=== PATIENT | male | born 1970 | race Asian ===

== ENCOUNTER 2017-02-26 09:00 | Emergency (ER) | payer OTHER ==
[~2017-02-26] VITALS: Ht 165.1 cm; Wt 120.0 kg
[~2017-02-26 09:00] MED LIST: ASPI-664 PO; ERYT1OIN6 RIGHT EYE; GUAI120S26 PO; IBUP-1542 PO; LORA1TAB PO; LOSA50TA2 PO; NAPR-688 PO; SIMV40TA2 PO
[2017-02-26 09:05] VITALS: Ht 165.1 cm; Wt 120.0 kg
[2017-02-26] MEDS ORDERED: ONDANSETRON 4 MG INJ IV STA (09:56)
[2017-02-26] MEDS ORDERED: KETOROLAC 30 MG INJ IV STA (09:56)
[2017-02-26] MEDS ORDERED: SOD CHLORIDE 0.9% 1,000 ML IV ONE (10:00)
--- NOTE | 2017-02-26 10:01 | ERD ---
ER Documentation Chief Complaint Date/Time DATE: 02/26/17 TIME: 09:56 Chief Complaint Complains of right flank pain HX of Kidney stone HPI 46-year-old male who presents to the emergency department for right-sided flank pain for about 7 days but got worse last night. Also complains of dysuria. Denies headache, dizziness, blurry vision, neck pain, shoulder pain, chest pain , back pain, abdominal pain, nausea and vomiting, constipation, diarrhea, loss of bowel and bladder control, recent travel, recent long travel, penile discharge, penile bleeding, trauma, numbness or tingling sensation, recent exposure to any illness, antibiotic use in the last 3 months, fever, chills. No known drug allergies. Past medical history of right-sided kidney stone. Surgical history of cholecystectomy. Medication: Losartan, simvastatin, aspirin, oxybutynin, omeprazole. Social: Not working at this time. Occasional drinks alcoholic beverages. Denies smoking cigarettes, use of illegal drugs. ROS All systems reviewed and are negative except as per history of present illness. Medications Home Meds Active Scripts Naproxen* (Naproxen*) 500 Mg Tablet, 500 MG PO BID, #20 TAB Prov:DMITRYDERICK DO 05/17/16 Fhgxfamuukx-R-Yhbutuoczo Hb* (Guaifenesin* DM Syrup) 120 Ml Syrup, 10 ML PO Q4H Y for COUGH, #120 ML Prov:ROSANNE IYER PA-C 04/10/16 Lorazepam* (Lorazepam*) 1 Mg Tablet, 1 MG PO BID Y for ANXIETY, #14 TAB Prov:RAF NOGUEIRA 08/06/15 Erythromycin (Erythromycin Opth) 3.5 Gm Oint..gm., 1 APPLIC RIGHT EYE QID for 7 Days, EA Prov:RAF NOGUEIRA 08/06/15 Ibuprofen* (Motrin*) 600 Mg Tab, 600 MG PO Q6H Y for PAIN AND OR ELEVATED TEMP, #30 Prov:FREDA LEVINE MD 02/13/15 Reported Medications Simvastatin* (Zocor*) 40 Mg Tablet, 40 MG PO QHS, #30 TAB 05/17/16 Losartan Potassium* (Cozaar*) 50 Mg Tablet, 50 MG PO DAILY, #30 TAB 05/17/16 Aspirin (Low Dose Aspirin) 81 Mg Tablet.dr, 81 MG PO DAILY 11/24/14 Allergies Allergies: Coded Allergies: No Known Allergy (Unverified , 02/13/15) PMhx/Soc History of Surgery: No Anesthesia Reaction: No Hx Neurological Disorder: No Hx Respiratory Disorders: No Hx Cardiac Disorders: Yes (HTN) Hx Psychiatric Problems: No Hx Miscellaneous Medical Probl: No Hx Alcohol Use: Yes Hx Substance Use: No Hx Tobacco Use: Yes Smoking Status: Never smoker Physical Exam Vitals Vital Signs Date Time Temp Pulse Resp B/P Pulse Ox O2 Delivery O2 Flow Rate FiO2 02/26/17 09:05 97.7 65 20 133/73 97 Physical Exam Const: [] Head: Atraumatic Eyes: Normal Conjunctiva ENT: Normal External Ears, Nose and Mouth. Neck: Full range of motion..~ No meningismus. Resp: Clear to auscultation bilaterally Cardio: Regular rate and rhythm, no murmurs Abd: Soft, non tender, non distended. Normal bowel sounds : Right-sided CVA tenderness. Skin: No petechiae or rashes Back: No midline or flank tenderness Ext: No cyanosis, or edema Neur: Awake and alert Psych: Normal Mood and Affect Result Diagram: 02/26/17 1010 02/26/17 1010 Results 24 hrs Laboratory Tests Test 02/26/17 10:10 02/26/17 10:18 White Blood Count 8.310^3/ul Red Blood Count 5.1710^6/ul Hemoglobin 14.5g/dl Hematocrit 44.7% Mean Corpuscular Volume 86.5fl Mean Corpuscular Hemoglobin 28.0pg Mean Corpuscular Hemoglobin Concent 32.4g/dl Red Cell Distribution Width 13.2% Platelet Count 27945^3/UL Mean Platelet Volume 10.0fl Neutrophils % 63.2% Lymphocytes % 25.4% Monocytes % 9.0% Eosinophils % 1.7% Basophils % 0.5% Nucleated Red Blood Cells % 0.0/100WBC Neutrophils # (Manual) 5.310^3/ul Lymphocytes # 2.110^3/ul Monocytes # 0.810^3/ul Eosinophils # 0.110^3/ul Basophils # 0.010^3/ul Nucleated Red Blood Cells # 0.010^3/ul Sodium Level 145mmol/L Potassium Level 4.1mmol/L Chloride Level 105mmol/L Carbon Dioxide Level 24mmol/L Anion Gap 20 Blood Urea Nitrogen 19mg/dl Creatinine 0.98mg/dl Glucose Level 97mg/dl Calcium Level 9.1mg/dl Total Bilirubin 0.1mg/dl Direct Bilirubin 0.00mg/dl Indirect Bilirubin 0.1mg/dl Aspartate Amino Transf (AST/SGOT) 29IU/L Alanine Aminotransferase (ALT/SGPT) 51IU/L Alkaline Phosphatase 59IU/L Total Protein 7.8g/dl Albumin 4.4g/dl Globulin 3.40g/dl Albumin/Globulin Ratio 1.29 Amylase Level 58U/L Lipase 56U/L Urine Color YELLOW Urine Clarity SLIGHTLY CLOUDY Urine pH 5.0 Urine Specific [place] 1.023 Urine Ketones NEGATIVEmg/dL Urine Nitrite NEGATIVEmg/dL Urine Bilirubin NEGATIVEmg/dL Urine Urobilinogen NEGATIVEmg/dL Urine Leukocyte Esterase NEGATIVELeu/ul Urine Microscopic RBC 0/HPF Urine Microscopic WBC 1/HPF Urine Hemoglobin 1+mg/dL Urine Glucose NEGATIVEmg/dL Urine Total Protein NEGATIVEmg/dl Current Medications Medications (Trade) Dose Ordered Sig/Sima Route PRN Reason Start Time Stop Time Status Last Admin Dose Admin Sodium Chloride (NS) 1,000 ml @ 1,000 mls/hr Q1H ONCE IV 02/26/17 10:00 02/26/17 10:59 DC 02/26/17 10:08 Ketorolac Tromethamine (Toradol) 30 mg ONCE STAT IV 02/26/17 09:56 02/26/17 09:59 DC 02/26/17 10:08 Ondansetron HCl (Zofran Inj) 4 mg ONCE STAT IV 02/26/17 09:56 02/26/17 09:59 DC 02/26/17 10:07 Procedures/MDM Examination: Please see physical examination. Disease process, medical treatment was explained to the patient and family member. They verbalized understanding and agreed with the diagnostic tests, medical treatment, and follow-up care. Radiology: CT of the abdomen and pelvis without IV contrast Impression: Blood works: Reviewed. Urinalysis: Reviewed. Treatment: IV insertion. Normal saline IV bolus. Toradol IV. Zofran IV. Re-evaluation: Denies headache, dizziness, blurry vision, neck pain, shoulder pain, chest pain, back pain, abdominal pain, nausea, vomiting. No episode of emesis in the emergency department. Alert and oriented 4. Speaks full and clear sentences. Respirations even and unlabored. Lung sounds clear to auscultation. Active bowel sounds. There is no right upper/right lower/ epigastric/left upper/left lower abdominal tenderness and light and deep palpation. Negative on Rovsings sign. Negative [place] sign. Able to jump 5 times without developing right-sided abdominal pain. No peritoneal signs. Ambulatory with steady gait. No neurovascular deficits. No neurological deficits. Consultation: Case was discussed with supervising physician, Dr. Prem Fuentes who agreed with my medical decision making to discharge the patient. Differential diagnosis: Appendicitis versus pancreatitis versus liver disease versus nephrolithiasis versus pyelonephritis versus urinary tract infection versus musculoskeletal spasms Medical decision m[age]-year-old male who presents to the emergency department for right-sided flank pain for about 7 days but got worse last night. Also complains of dysuria. Denies headache, dizziness, blurry vision, neck pain, shoulder pain, chest pain, back pain, abdominal pain, nausea and vomiting, constipation, diarrhea, loss of bowel and bladder control, recent travel, recent long travel, penile discharge, penile bleeding, trauma, numbness or tingling sensation, recent exposure to any illness, antibiotic use in the last 3 months, fever, chills. Physical examination revealed that patient has right-sided CVA tenderness. Able to jump 5 times without developing right- sided abdominal pain. Medications prescribed are the following: tramadol, flexeril, zofran Patient and family member are made aware of the side effects and adverse reactions of the medications prescribed. Instructed on when to seek emergent and medical attention in case allergic/anaphylactic reactions or severe side effects and or adverse reactions to medications. Patient and family member verbalized understanding. Patient instructed Instructed to follow-up with his PCP in 24-48 hours. Instructed to Call 911 for chest pain, shortness of breath. Advised to come back here in ED as soon as possible for severity of symptoms which includes but not limited to: any new symptoms; shortness of breath/difficulty of breathing; cardiovascular changes; severe gastrointestinal symptoms; signs and symptoms of bleeding and or infection; signs of compartment syndrome/neurovascular changes; neurological changes/deficits. Patient and family member verbalized understanding. Upon discharge, patient is alert and oriented x 4, speaks full and clear sentences, denies pain, has no neurological deficits, has no neurovascular deficits, difficulty of breathing. Breathing even and unlabored. Lung sounds are clear to auscultation. Not in distress. Appears comfortable. Ambulatory with steady gait. Appears satisfied with care provided here in ED. Departure Diagnosis: Primary Impression: Flank pain Additional Impressions: Muscle spasm Fatty liver Condition: Good Additional Instructions: Instructed to follow-up with his PCP in 24-48 hours. Instructed to Call 911 for chest pain, shortness of breath. Advised to come back here in ED as soon as possible for severity of symptoms which includes but not limited to: any new symptoms; shortness of breath/difficulty of breathing; cardiovascular changes; severe gastrointestinal symptoms; signs and symptoms of bleeding and or infection; signs of compartment syndrome/neurovascular changes; neurological changes/deficits. Patient and family member verbalized understanding. SOLEDAD MCFADDEN Feb 26, 2017 10:01
--- NOTE | 2017-02-26 10:41 | RADRPT ---
PROCEDURE: CT Abdomen and Pelvis without contrast. CLINICAL INDICATION: Flank, groin and back pain, dysuria. TECHNIQUE: CT scan of the abdomen and pelvis without contrast was performed on a multidetector hig h-resolution CT scanner. The patient was scanned without intravenous contrast. Coronal and sagittal reformatted images were obtained from the axial source images. Images were reviewed on a high-resol [facility] [employer] PACS workstation. The total exam CTDI equals 22.91 mGy and the total exam DLP equals 1586.41 m Gy-cm. One or the following dose reduction techniques were used: -Automated exposure control. -Adjustment of the mA and/or KV according to patient's size. -Use of iterative reconstruction technique. COMPARISON: None. FINDINGS: Cardiac/lung Bases: There is mild cardiomegaly. Lung bases appear clear. GI:. Unremarkable. Liver: Liver is mildly enlarged at 22 cm in length with a decrease in the overall attenuation sugges ting mild steatosis. Gallbladder: Clips in the gallbladder fossa indicative of prior cholecystectomy without biliary tree dilatation. Pancreas: There is fatty replacement of the pancreas. Spleen: Unremarkablel Adrenals: Unremarkable. Kidneys: There is no evidence of urolithiasis or obstructive uropathy. Bladder: Unremarkable. Pelvic Organs: Unremarkable. Skeleton: Normal for age. Other: N/A IMPRESSION: 1. Mild hepatomegaly with a slight decrease in the overall attenuation consistent with disuse steato sis. 2. Previous cholecystectomy without biliary tree dilatation. 3. No evidence of urolithiasis or obstructive uropathy. 4. Mild scattered colonic diverticulosis without evidence of acute diverticulitis. 5. Mild fatty replacement of the pancreas. 6. Mild cardiomegaly. 7. No other significant intra-abdominal or pelvic process identified. RPTAT: [facility] Physician Kiana Date Time Electronically viewed and signed by Physician Kiana on 02/26/2017 10:40 /
[2017-02-26 11:51] LABS: BASOPHILS % 0.5 % (0.0-2.0); EOSINOPHILS # 0.1 10^3/ul (0.0-0.5); EOSINOPHILS % 1.7 % (0.0-7.0); HEMATOCRIT 44.7 % (42.0-52.0); HEMOGLOBIN 14.5 g/dl (14.0-18.0); LYMPHOCYTES # 2.1 10^3/ul (0.8-2.9); LYMPHOCYTES % 25.4 % (15.0-51.0); MEAN CORPUSCULAR HGB CONC 32.4 g/dl (32.0-37.0); MEAN CORPUSCULAR VOLUME 86.5 fl (82.0-101.0); MONOCYTE # 0.8 10^3/ul (0.3-0.9); NEUTROPHILS % 63.2 % (39.0-77.0); PLATELET COUNT 268 10^3/UL (140-415); RED BLOOD COUNT 5.17 10^6/ul (4.70-6.10); RED CELL DISTRIBUTION WIDTH 13.2 % (11.5-14.5); WHITE BLOOD COUNT 8.3 10^3/ul (4.8-10.8)
[2017-02-26 11:58] LABS: ADD UMIC YES; UR ASCORBIC ACID NEGATIVE (NEGATIVE); UR BILIRUBIN (Dip) NEGATIVE (NEGATIVE); UR BLOOD (Dip) 1+ mg/dL (NEGATIVE); UR CLARITY SLIGHTLY CLOUDY (CLEAR); UR COLOR YELLOW (YELLOW); UR GLUCOSE (Dip) NEGATIVE (NEGATIVE); UR KETONES (Dip) NEGATIVE (NEGATIVE); UR LEUKOCYTE ESTERASE (Dip) NEGATIVE Leu/ul (NEGATIVE); UR NITRITE (Dip) NEGATIVE (NEGATIVE); UR RBC 0 /HPF (0-5); UR SPECIFIC GRAVITY (Dip) 1.023 (1.003-1.030); UR TOTAL PROTEIN (Dip) NEGATIVE (NEGATIVE); UR UROBILINOGEN (Dip) NEGATIVE (NEGATIVE)
[2017-02-26 12:53] LABS: ALBUMIN 4.4 g/dl (3.3-4.9); ALBUMIN/GLOBULIN RATIO 1.29; BILIRUBIN,INDIRECT 0.1 mg/dl (0-1.1); BILIRUBIN,TOTAL 0.1 mg/dl (0.2-1.3); CALCIUM 9.1 mg/dl (8.4-10.2); CREATININE 0.98 mg/dl (0.61-1.24); POTASSIUM 4.1 mmol/L (3.5-5.1); TOTAL PROTEIN 7.8 g/dl (6.1-8.1)
== END 2017-02-26 13:40 | disposition home or self-care (01) ==
LOC: FTE 09:00
DX: R10.9 Unspecified abdominal pain (principal); M62.838 Other muscle spasm; K76.0 Fatty (change of) liver, not elsewhere classified; I10 Essential (primary) hypertension; Z79.82 Long term (current) use of aspirin
CPT/HCPCS: 74176; 80053; 81001; 82150; 83690; 85025; 96374; 96375; J1885; J2405; J7030; Z7502

== ENCOUNTER 2017-04-10 10:34 | Emergency (ER) | payer OTHER ==
[~2017-04-10] VITALS: Ht 157.5 cm; Wt 119.0 kg
[2017-04-10 10:37] VITALS: Ht 157.5 cm; Wt 119.0 kg
--- NOTE | 2017-04-10 11:47 | RADRPT ---
PROCEDURE: Chest x-ray CLINICAL INDICATION: Shortness of breath TECHNIQUE: Chest single view COMPARISON: 05/17/2016 FINDINGS: There is stable mild cardiomegaly . The pulmonary vessels are normal in caliber. The lungs are c lear. The costophrenic angles are sharp. The visualized bony thorax is unremarkable. IMPRESSION: No acute cardiopulmonary disease. Stable mild cardiomegaly. RPTAT: HH .Sebastian Dickerson MD, MD Date Time Electronically viewed and signed by .Sebastian Dickerson MD, on 04/10/2017 11:47 .W/
[2017-04-10] MEDS ORDERED: SOD CHLORIDE 0.9% 1,000 ML IV STA (12:30)
[2017-04-10 12:54] LABS: BASOPHIL # 0.1 10^3/ul (0.0-0.1); BASOPHILS % 0.7 % (0.0-2.0); EOSINOPHILS # 0.1 10^3/ul (0.0-0.5); EOSINOPHILS % 0.9 % (0.0-7.0); HEMATOCRIT 44.9 % (42.0-52.0); HEMOGLOBIN 14.7 g/dl (14.0-18.0); LYMPHOCYTES % 22.3 % (15.0-51.0); MEAN CORPUSCULAR HEMOGLOBIN 28.2 pg (29.0-33.0); MEAN CORPUSCULAR HGB CONC 32.7 g/dl (32.0-37.0); MEAN CORPUSCULAR VOLUME 86.2 fl (82.0-101.0); MONOCYTE # 0.8 10^3/ul (0.3-0.9); MONOCYTES % 8.7 % (0.0-11.0); NEUTROPHIL # 6.1 10^3/ul (1.6-7.5); NEUTROPHILS % 67.2 % (39.0-77.0); PLATELET COUNT 292 10^3/UL (140-415); RED BLOOD COUNT 5.21 10^6/ul (4.70-6.10); RED CELL DISTRIBUTION WIDTH 12.7 % (11.5-14.5); WHITE BLOOD COUNT 9.1 10^3/ul (4.8-10.8)
--- NOTE | 2017-04-10 13:01 | ERD ---
ER Documentation Chief Complaint Date/Time DATE: 04/10/17 TIME: 12:53 Chief Complaint Complains of SOB since this No Asthma HPI 46-year-old male with history of hypertension presenting to the emergency department planing of shortness of breath since earlier today. Patient states that he was in a hot warehouse and moving loads when he started feeling sweaty, nauseous and had an episode of vomiting for couple minutes. Patient states that after this episode, he started having shortness of breath. He denies any chest pain. Patient said that shortness of breath has gotten a lot better since it happened. ROS All systems reviewed and are negative except as per history of present illness. Medications Home Meds Active Scripts Naproxen* (Naproxen*) 500 Mg Tablet, 500 MG PO BID, #20 TAB Prov:DERICK ANDRES DO 05/17/16 Bdbfqbjbolb-M-Zzzuezukjj Hb* (Guaifenesin* DM Syrup) 120 Ml Syrup, 10 ML PO Q4H Y for COUGH, #120 ML Prov:ROSANNE IYER PA-C 04/10/16 Lorazepam* (Lorazepam*) 1 Mg Tablet, 1 MG PO BID Y for ANXIETY, #14 TAB Prov:RAF NOGUEIRA S. 08/06/15 Erythromycin (Erythromycin Opth) 3.5 Gm Oint..gm., 1 APPLIC RIGHT EYE QID for 7 Days, EA Prov:RAF NOGUEIRA S. 08/06/15 Ibuprofen* (Motrin*) 600 Mg Tab, 600 MG PO Q6H Y for PAIN AND OR ELEVATED TEMP, #30 Prov:FREDA LEVINE MD 02/13/15 Reported Medications Simvastatin* (Zocor*) 40 Mg Tablet, 40 MG PO QHS, #30 TAB 05/17/16 Losartan Potassium* (Cozaar*) 50 Mg Tablet, 50 MG PO DAILY, #30 TAB 05/17/16 Aspirin (Low Dose Aspirin) 81 Mg Tablet.dr, 81 MG PO DAILY 11/24/14 Allergies Allergies: Coded Allergies: No Known Allergy (Unverified , 02/13/15) PMhx/Soc History of Surgery: No Anesthesia Reaction: No Hx Neurological Disorder: No Hx Respiratory Disorders: No Hx Cardiac Disorders: Yes (HTN) Hx Psychiatric Problems: No Hx Miscellaneous Medical Probl: No Hx Alcohol Use: Yes Hx Substance Use: No Hx Tobacco Use: Yes Smoking Status: Smoker,current status unk Physical Exam Vitals Vital Signs Date Time Temp Pulse Resp B/P Pulse Ox O2 Delivery O2 Flow Rate FiO2 04/10/17 10:37 98.5 88 20 137/76 95 Physical Exam Const: WDWN Head: Atraumatic Eyes: Normal Conjunctiva ENT: Normal External Ears, Nose and Mouth. Neck: Full range of motion..~ No meningismus. Resp: Clear to auscultation bilaterally Cardio: Regular rate and rhythm, no murmurs Abd: Soft, non tender, non distended. Normal bowel sounds Skin: No petechiae or rashes Back: No midline or flank tenderness Ext: No cyanosis, or edema Neur: Awake and alert Psych: Normal Mood and Affect Results 24 hrs Laboratory Tests Test 04/10/17 12:24 04/10/17 12:50 Bedside Glucose 95mg/dL White Blood Count Pending Red Blood Count Pending Hemoglobin Pending Hematocrit Pending Mean Corpuscular Volume Pending Mean Corpuscular Hemoglobin Pending Mean Corpuscular Hemoglobin Concent Pending Red Cell Distribution Width Pending Platelet Count Pending Mean Platelet Volume Pending Current Medications Medications (Trade) Dose Ordered Sig/Sima Route PRN Reason Start Time Stop Time Status Last Admin Dose Admin Sodium Chloride (NS) 1,000 ml @ 1,000 mls/hr Q1H STAT IV 04/10/17 12:30 04/10/17 13:29 Procedures/MDM This a well-appearing 46-year-old male presenting to the emergency department complaining of shortness of breath status post a couple minute episode of nausea and vomiting in a hot warehouse, this is likely vasovagal response dehydration. Patient does not have any evidence of distress, he is well- appearing, pulse ox is normal. Chest x-ray did not show any evidence of infiltrates, pneumothorax or pleural effusion. There was evidence of a mild cardiomegaly which I have discussed with him. No evidence of CHF. EKG did not show any evidence of STEMI or dysrhythmia. Lab work was drawn. CBC did not show any evidence of leukocytosis or anemia. CMP did not show any evidence of renal, liver, or electrolyte abnormalities. Troponin within normal limits.. Patient was instructed to follow-up with primary care physician. Patient has improved and stable to be discharged home. Departure Diagnosis: Primary Impression: Shortness of breath Condition: Stable TERRA SEAY PA-C Apr 10, 2017 13:01
[2017-04-10 13:16] LABS: ALANINE AMINOTRANSFERASE 55 IU/L (13-69); ALBUMIN 4.2 g/dl (3.3-4.9); ALKALINE PHOSPHATASE 63 IU/L (42-121); ANION GAP 12 (8-16); ASPARTATE AMINO TRANSFERASE 34 IU/L (15-46); BLOOD UREA NITROGEN 19 mg/dl (7-20); CALCIUM 9.3 mg/dl (8.4-10.2); CARBON DIOXIDE 29 mmol/L (21-31); CHLORIDE 104 mmol/L (97-110); CREATININE 1.15 mg/dl (0.61-1.24); GLUCOSE 91 mg/dl (70-220); POTASSIUM 4.1 mmol/L (3.5-5.1); SODIUM 141 mmol/L (135-144)
[2017-04-10 13:34] LABS: TROPONIN-I < 0.012 ng/ml (0.00-0.12)
[2017-04-10 14:15] VITALS: RESP 20
== END 2017-04-10 14:16 | disposition home or self-care (01) ==
LOC: FTE 10:34
DX: R06.02 Shortness of breath (principal); I10 Essential (primary) hypertension; Z79.82 Long term (current) use of aspirin; Z87.891 Personal history of nicotine dependence
CPT/HCPCS: 71010; 80053; 82962; 83690; 84484; 85025; J7030; Z7502

== ENCOUNTER 2017-04-17 08:39 | Emergency (ER) | payer OTHER ==
[~2017-04-17] VITALS: Ht 170.2 cm; Wt 117.0 kg
[2017-04-17 08:45] VITALS: Ht 170.2 cm; Wt 117.0 kg
[2017-04-17] MEDS ORDERED: KETOROLAC 30 MG INJ IV STA (09:20)
[2017-04-17 09:48] LABS: BASOPHILS % 0.6 % (0.0-2.0); EOSINOPHILS # 0.1 10^3/ul (0.0-0.5); EOSINOPHILS % 1.1 % (0.0-7.0); HEMATOCRIT 43.4 % (42.0-52.0); HEMOGLOBIN 14.2 g/dl (14.0-18.0); LYMPHOCYTES # 1.1 10^3/ul (0.8-2.9); LYMPHOCYTES % 17.2 % (15.0-51.0); MEAN CORPUSCULAR HEMOGLOBIN 28.2 pg (29.0-33.0); MEAN CORPUSCULAR HGB CONC 32.7 g/dl (32.0-37.0); MEAN CORPUSCULAR VOLUME 86.1 fl (82.0-101.0); MEAN PLATELET VOLUME 9.3 fl (7.4-10.4); MONOCYTE # 0.5 10^3/ul (0.3-0.9); MONOCYTES % 7.2 % (0.0-11.0); NEUTROPHIL # 4.7 10^3/ul (1.6-7.5); NEUTROPHILS % 73.6 % (39.0-77.0); PLATELET COUNT 255 10^3/UL (140-415); RED BLOOD COUNT 5.04 10^6/ul (4.70-6.10); RED CELL DISTRIBUTION WIDTH 12.9 % (11.5-14.5); WHITE BLOOD COUNT 6.4 10^3/ul (4.8-10.8)
--- NOTE | 2017-04-17 10:09 | RADRPT ---
PROCEDURE: XR Chest. CLINICAL INDICATION: Chest Pain. TECHNIQUE: Single frontal view of the chest was obtained COMPARISON: 04/10/2017 FINDINGS: The heart remains mildly enlarged. The lungs are clear. There is no pleural effusion or pneumothorax. The bones and soft tissue show no acute change. IMPRESSION: The heart is mildly enlarged. Otherwise, no significant abnormalities are identified. RPTAT:AAJJ Physician Gretel Date Time Electronically viewed and signed by Chapin Freedman Physician on 04/17/2017 10:09 /
[2017-04-17 10:10] LABS: ANION GAP 12 (8-16); BLOOD UREA NITROGEN 16 mg/dl (7-20); CARBON DIOXIDE 27 mmol/L (21-31); CHLORIDE 106 mmol/L (97-110); CREATININE 0.87 mg/dl (0.61-1.24); GLUCOSE 118 mg/dl (70-220); POTASSIUM 3.7 mmol/L (3.5-5.1); SODIUM 141 mmol/L (135-144)
[2017-04-17 10:24] LABS: TROPONIN-I < 0.012 ng/ml (0.00-0.12)
[2017-04-17] MEDS ORDERED: IBUP-1542 PO (10:36)
--- NOTE | 2017-04-17 10:38 | ERD ---
ER Documentation Chief Complaint Chief Complaint Complains of chest pain with pressure since yesterday HPI Patient is a 46-year-old male with hypertension who presents with chest pain. The patient says the symptoms come and go and lasts a few seconds at a time. He said that he tried to ignore it. It started yesterday. He woke up at 5 AM with the same pain. It is a sharp and poking pain. Left-sided. He denies shortness of breath. He was seen 1 week ago for shortness of breath but says this felt different. He has pain with palpation of his chest. He has had no treatment as of yet. Upon review of old medical records this is the patient's ninth visit to the ER since 2008. ROS All systems reviewed and are negative except as per history of present illness. Medications Home Meds Active Scripts Ibuprofen* (Motrin*) 600 Mg Tab, 600 MG PO Q6H Y for PAIN AND OR ELEVATED TEMP, #30 TAB Prov:LYDIA GRANDA MD 04/17/17 Naproxen* (Naproxen*) 500 Mg Tablet, 500 MG PO BID, #20 TAB Prov:DERICK ANDRES DO 05/17/16 Fkkopoajtor-O-Utgksxidfy Hb* (Guaifenesin* DM Syrup) 120 Ml Syrup, 10 ML PO Q4H Y for COUGH, #120 ML Prov:ROSANNE IYER PA-C 04/10/16 Lorazepam* (Lorazepam*) 1 Mg Tablet, 1 MG PO BID Y for ANXIETY, #14 TAB Prov:RAF NOGUEIRA 08/06/15 Erythromycin (Erythromycin Opth) 3.5 Gm Oint..gm., 1 APPLIC RIGHT EYE QID for 7 Days, EA Prov:RAF NOGUEIRA 08/06/15 Ibuprofen* (Motrin*) 600 Mg Tab, 600 MG PO Q6H Y for PAIN AND OR ELEVATED TEMP, #30 Prov:FREDA LEVINE MD 02/13/15 Reported Medications Simvastatin* (Zocor*) 40 Mg Tablet, 40 MG PO QHS, #30 TAB 05/17/16 Losartan Potassium* (Cozaar*) 50 Mg Tablet, 50 MG PO DAILY, #30 TAB 05/17/16 Aspirin (Low Dose Aspirin) 81 Mg Tablet.dr, 81 MG PO DAILY 11/24/14 Allergies Allergies: Coded Allergies: No Known Allergy (Unverified , 02/13/15) PMhx/Soc Medical and Surgical Hx: pt denies Surgical Hx History of Surgery: No Anesthesia Reaction: No Hx Neurological Disorder: No Hx Respiratory Disorders: No Hx Cardiac Disorders: Yes (HTN, ENLARGED HEART) Hx Psychiatric Problems: No Hx Miscellaneous Medical Probl: No Hx Alcohol Use: Yes Hx Substance Use: No Hx Tobacco Use: Yes (QUIT 2 YEARS AGO) Smoking Status: Former smoker FmHx Family History: No coronary disease Physical Exam Vitals Vital Signs Date Time Temp Pulse Resp B/P Pulse Ox O2 Delivery O2 Flow Rate FiO2 04/17/17 10:54 98.4 57 20 114/76 95 Room Air 04/17/17 08:45 97.7 63 20 147/92 97 Physical Exam Const: No acute distress Head: Atraumatic Eyes: Normal Conjunctiva ENT: Normal External Ears, Nose and Mouth. Neck: Full range of motion..~ No meningismus. Resp: Clear to auscultation bilaterally Cardio: Regular rate and rhythm, no murmurs, chest wall pain with palpation which reproduces his pain Abd: Soft, non tender, non distended. Normal bowel sounds Skin: No petechiae or rashes Back: No midline or flank tenderness Ext: No cyanosis, or edema Neur: Awake and alert Psych: Normal Mood and Affect Result Diagram: 04/17/1740 04/17/17 0940 Results 24 hrs Laboratory Tests Test 04/17/17 09:40 White Blood Count 6.410^3/ul Red Blood Count 5.0410^6/ul Hemoglobin 14.2g/dl Hematocrit 43.4% Mean Corpuscular Volume 86.1fl Mean Corpuscular Hemoglobin 28.2pg Mean Corpuscular Hemoglobin Concent 32.7g/dl Red Cell Distribution Width 12.9% Platelet Count 44801^3/UL Mean Platelet Volume 9.3fl Neutrophils % 73.6% Lymphocytes % 17.2% Monocytes % 7.2% Eosinophils % 1.1% Basophils % 0.6% Nucleated Red Blood Cells % 0.0/100WBC Neutrophils # 4.710^3/ul Lymphocytes # 1.110^3/ul Monocytes # 0.510^3/ul Eosinophils # 0.110^3/ul Basophils # 0.010^3/ul Nucleated Red Blood Cells # 0.010^3/ul Sodium Level 141mmol/L Potassium Level 3.7mmol/L Chloride Level 106mmol/L Carbon Dioxide Level 27mmol/L Anion Gap 12 Blood Urea Nitrogen 16mg/dl Creatinine 0.87mg/dl Glucose Level 118mg/dl Calcium Level 9.0mg/dl Troponin I < 0.012ng/ml Current Medications Medications (Trade) Dose Ordered Sig/Sima Route PRN Reason Start Time Stop Time Status Last Admin Dose Admin Ketorolac Tromethamine (Toradol) 30 mg ONCE STAT IV 04/17/17 09:20 04/17/17 09:21 DC 04/17/17 09:38 Procedures/MDM EKG read by me: Rate/Rhythm: Incomplete right bundle branch block a rate of 66 Intervals: Normal Impression: Incomplete right bundle branch block without ischemia Chest x-ray shows mild cardiomegaly but otherwise negative. Patient is a 46-year-old male who presents with chest pain. His chest pain is very atypical in nature and troponin was negative. EKG shows no signs of ischemia. Chest x-ray shows no pneumonia or pneumothorax. At this point I doubt acute coronary syndrome, pneumonia, pneumothorax, pulmonary embolism, or aortic dissection. I believe outpatient management is appropriate but the patient will need close follow-up with his primary doctor within 24-48 hours. He can return for any worsening symptoms. He was given copies of his laboratory studies and chest x-ray report prior to discharge. Departure Diagnosis: Primary Impression: Chest pain Chest pain type: unspecified Qualified Code: R07.9 - Chest pain, unspecified type Condition: Fair Patient Instructions: Chest Pain, Uncertain Cause Additional Instructions: Call your primary care doctor TOMORROW for an appointment during the next 1-2 days.See the doctor sooner or return here if your condition worsens before your appointment time. LYDIA GRANDA MD Apr 17, 2017 10:38
[2017-04-17 10:54] VITALS: BP 114/76; PULSE 57; RESP 20; TEMP 98.4
== END 2017-04-17 10:58 | disposition home or self-care (01) ==
LOC: E/R 08:39
DX: R07.89 Other chest pain (principal); I10 Essential (primary) hypertension; Z79.82 Long term (current) use of aspirin; Z87.891 Personal history of nicotine dependence
CPT/HCPCS: 36415; 71010; 80048; 84484; 85025; 96374; J1885; Z7502; 93005

== ENCOUNTER 2017-04-22 18:47 | Emergency (ER) | payer OTHER ==
[~2017-04-22] VITALS: Ht 167.6 cm; Wt 118.5 kg
[2017-04-22 19:33] VITALS: Ht 167.6 cm; Wt 118.5 kg
[2017-04-22 23:42] LABS: HEMATOCRIT 44.4 % (42.0-52.0); HEMOGLOBIN 14.9 g/dl (14.0-18.0); LYMPHOCYTES % 25.1 % (15.0-51.0); MEAN CORPUSCULAR HEMOGLOBIN 28.7 pg (29.0-33.0); MEAN CORPUSCULAR HGB CONC 33.6 g/dl (32.0-37.0); MEAN CORPUSCULAR VOLUME 85.5 fl (82.0-101.0); MEAN PLATELET VOLUME 9.4 fl (7.4-10.4); MONOCYTES % 8.9 % (0.0-11.0); NEUTROPHILS % 63.3 % (39.0-77.0); PLATELET COUNT 288 10^3/UL (140-440); RED BLOOD COUNT 5.19 10^6/ul (4.70-6.10); RED CELL DISTRIBUTION WIDTH 12.9 % (11.5-14.5); WHITE BLOOD COUNT 7.7 10^3/ul (4.8-10.8)
[2017-04-22 23:43] LABS: BASOPHILS % 0.5 % (0.0-2.0); EOSINOPHILS % 1.8 % (0.0-7.0); POSITIVE DIFF NO
[2017-04-22 23:45] LABS: ALBUMIN 4.3 g/dl (3.3-4.9); ALBUMIN/GLOBULIN RATIO 1.16; BILIRUBIN,INDIRECT 0.2 mg/dl (0-1.1); BILIRUBIN,TOTAL 0.2 mg/dl (0.2-1.3); CALCIUM 9.6 mg/dl (8.4-10.2); CREATININE 1.06 mg/dl (0.61-1.24); POTASSIUM 3.9 mmol/L (3.5-5.1)
[2017-04-23] MEDS ORDERED: NAPR-260 PO (00:12)
--- NOTE | 2017-04-23 00:16 | ERD ---
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 -dizzy Hx HTN. 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 States that he was seen here a few days ago and that this feels similar. States that the pain is stabbing. States that the pain has resolved. States he did follow-up with his primary care physician and is waiting for referral for client retention specialist. States that he has had a heart attack approximately 5-6 years ago and was at [facility]. States that his client retention specialist is Dr. Morin. Denies any dizziness, shortness of breath, vomiting. ROS All systems reviewed and are negative except as per history of present illness. Medications Home Meds Active Scripts Naproxen* (Naprosyn*) 500 Mg Tablet, 500 MG PO BID Y for PAIN AND/OR INFLAMMATION, #30 TAB Prov:CECY WADE PA-C 04/23/17 Ibuprofen* (Motrin*) 600 Mg Tab, 600 MG PO Q6H Y for PAIN AND OR ELEVATED TEMP, #30 TAB Prov:LYDIA GRANDA MD 04/17/17 Naproxen* (Naproxen*) 500 Mg Tablet, 500 MG PO BID, #20 TAB Prov:DERICK ANDRES DO 05/17/16 Nnewxytqbbx-W-Zwxmxskfdz Hb* (Guaifenesin* DM Syrup) 120 Ml Syrup, 10 ML PO Q4H Y for COUGH, #120 ML Prov:ROSANNE IYER PA-C 04/10/16 Lorazepam* (Lorazepam*) 1 Mg Tablet, 1 MG PO BID Y for ANXIETY, #14 TAB Prov:RAF NOGUEIRA 08/06/15 Erythromycin (Erythromycin Opth) 3.5 Gm Oint..gm., 1 APPLIC RIGHT EYE QID for 7 Days, EA Prov:RAF NOGUEIRA 08/06/15 Ibuprofen* (Motrin*) 600 Mg Tab, 600 MG PO Q6H Y for PAIN AND OR ELEVATED TEMP, #30 Prov:FREDA LEVINE MD 02/13/15 Reported Medications Simvastatin* (Zocor*) 40 Mg Tablet, 40 MG PO QHS, #30 TAB 05/17/16 Losartan Potassium* (Cozaar*) 50 Mg Tablet, 50 MG PO DAILY, #30 TAB 05/17/16 Aspirin (Low Dose Aspirin) 81 Mg Tablet.dr, 81 MG PO DAILY 11/24/14 Allergies Allergies: Coded Allergies: No Known Allergy (Unverified , 04/22/17) PMhx/Soc Medical and Surgical Hx: pt denies Surgical Hx History of Surgery: No Anesthesia Reaction: No Hx Neurological Disorder: No Hx Respiratory Disorders: No Hx Cardiac Disorders: Yes (HTN, ENLARGED HEART) Hx Psychiatric Problems: No Hx Miscellaneous Medical Probl: No Hx Alcohol Use: Yes Hx Substance Use: No Hx Tobacco Use: Yes (QUIT 2 YEARS AGO) Smoking Status: Never smoker Physical Exam Vitals Vital Signs Date Time Temp Pulse Resp B/P Pulse Ox O2 Delivery O2 Flow Rate FiO2 04/22/17 19:33 98.5 72 20 137/89 97 Physical Exam Const: NAD Head: Atraumatic Eyes: Normal Conjunctiva ENT: Normal External Ears, Nose and Mouth. Neck: Full range of motion..~ No meningismus. Resp: Clear to auscultation bilaterally. No absent breath sounds. No wheezing. Tenderness palpation left sided chest wall that is reproducible Cardio: Regular rate and rhythm, no murmurs Abd: Soft, non tender, non distended. Normal bowel sounds Skin: No petechiae or rashes Back: No midline or flank tenderness Ext: No cyanosis, or edema Neur: Awake and alert Psych: Normal Mood and Affect Result Diagram: 04/22/17220804/22/172208 Results 24 hrs Laboratory Tests Test 04/22/17 22:09 White Blood Count 7.710^3/ul Red Blood Count 5.1910^6/ul Hemoglobin 14.9g/dl Hematocrit 44.4% Mean Corpuscular Volume 85.5fl Mean Corpuscular Hemoglobin 28.7pg Mean Corpuscular Hemoglobin Concent 33.6g/dl Red Cell Distribution Width 12.9% Platelet Count 93006^3/UL Mean Platelet Volume 9.4fl Neutrophils % 63.3% Lymphocytes % 25.1% Monocytes % 8.9% Eosinophils % 1.8% Basophils % 0.5% Sodium Level 143mmol/L Potassium Level 3.9mmol/L Chloride Level 105mmol/L Carbon Dioxide Level 28mmol/L Anion Gap 14 Blood Urea Nitrogen 20mg/dl Creatinine 1.06mg/dl Glucose Level 96mg/dl Calcium Level 9.6mg/dl Total Bilirubin 0.2mg/dl Direct Bilirubin 0.00mg/dl Indirect Bilirubin 0.2mg/dl Aspartate Amino Transf (AST/SGOT) 30IU/L Alanine Aminotransferase (ALT/SGPT) 55IU/L Alkaline Phosphatase 64IU/L Troponin I < 0.012ng/ml Total Protein 8.0g/dl Albumin 4.3g/dl Globulin 3.70g/dl Albumin/Globulin Ratio 1.16 Procedures/MDM This 46-year-old male who presents the emergency department today for chest pain that started approximately 30 minutes prior to arrival 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 Upon review of patient's medical records patient was seen here April 17 and had complete laboratory workup, negative chest x-ray and negative troponin at that time. Patient reports similar symptoms however this is the patient's third visit to the ED in the past couple of weeks I did repeat an EKG and laboratory work. Laboratory workup shows no elevated white blood cell count. He is not anemic. Platelets are within normal limits. Electrolytes are within normal limits. Glucose is within normal limits. Liver enzymes are within normal limits. Troponin is negative. EKG read and interpreted by Dr. Lua rate [address] elevation. No QT prolongation. Normal sinus rhythm. Low suspicion for acute KS, PE, pericarditis Patient was requesting to have the patient admitted as this is his third visit. I did explain to the that at this time I did not feel that the patient required admission given his negative troponins. I did not repeat a chest x-ray today as patient has had 2 negative chest x-rays in the past couple of weeks. I discussed the patient with DrAlesia who saw and evaluated the patient and feels that the patient is stable for discharge and outpatient management may follow-up with his client retention specialist however given patient's pain is reproducible in the left side of his chest wall pain and has resolved upon coming to the ER it is likely [place] it is more consistent with chest wall pain and costochondritis. Patient was given a prescription for Naprosyn. I have low suspicion for AAA, acute coronary syndrome, PE, pneumonia. Patient is afebrile and otherwise well-appearing. His oxygen saturation is 97%. He is not tachycardic. When I went to check on the patient patient was resting comfortably. At this time the patient is stable for discharge and outpatient management. Patient should follow up with their PCP in the next 1-2 days. They may return to the emergency department sooner for any persistent or worsening of symptoms. Patient understood and agreed with the plan. Departure Diagnosis: Primary Impression: Chest pain Chest pain type: unspecified Qualified Code: R07.9 - Chest pain, unspecified type Condition: Fair Patient Instructions: Chest Wall Pain, Costochondritis Additional Instructions: Call your primary care doctor TOMORROW for an appointment during the next 1-2 days.See the doctor sooner or return here if your condition worsens before your appointment time. Make an appointment with your client retention specialist. Take your usual blood pressure medications. Take Naprosyn or Tylenol or Motrin for pain. Avoid heavy lifting. CECY WADE PA-C Apr 23, 2017 00:16
== END 2017-04-23 00:37 | disposition home or self-care (01) ==
LOC: FTE 18:47
DX: R07.9 Chest pain, unspecified (principal); I10 Essential (primary) hypertension; Z79.82 Long term (current) use of aspirin; Z87.891 Personal history of nicotine dependence
CPT/HCPCS: 80053; 84484; 85025; 93005; Z7502

== ENCOUNTER 2017-05-14 09:06 | Emergency (ER) | payer OTHER ==
[~2017-05-14] VITALS: Ht 167.6 cm; Wt 115.0 kg
[~2017-05-14 09:06] MED LIST changes: +NAPR-260 PO
[2017-05-14 09:09] VITALS: Ht 167.6 cm; Wt 115.0 kg
[2017-05-14] MEDS ORDERED: IBUPROFEN 800 MG TAB PO ONE (09:30)
[2017-05-14] MEDS ORDERED: IBUP-1542 PO (09:31)
--- NOTE | 2017-05-14 10:41 | ERD ---
ER Documentation Chief Complaint Chief Complaint pt bib self with c/o right foot pain since this am , no injury HPI 47-year-old male is complaining of right foot pain since this morning. Patient stated that the pain is under the arch of his right foot. Pain initial onset first thing this morning when he got up from the bed. Has pain with every step he takes, and when he is stepping on the gas pedal while driving. Patient works as a m48/m60 tank driver. Denies fever or chills. Denies foot trauma. ROS All systems reviewed and are negative except as per history of present illness. Medications Home Meds Active Scripts Ibuprofen* (Motrin*) 600 Mg Tab, 600 MG PO Q6H Y for PAIN AND OR ELEVATED TEMP, #30 TAB Prov:JESUS GOLDEN NP 05/14/17 Naproxen* (Naprosyn*) 500 Mg Tablet, 500 MG PO BID Y for PAIN AND/OR INFLAMMATION, #30 TAB Prov:CECY WADE PA-C 04/23/17 Ibuprofen* (Motrin*) 600 Mg Tab, 600 MG PO Q6H Y for PAIN AND OR ELEVATED TEMP, #30 TAB Prov:LYDIA GRANDA MD 04/17/17 Naproxen* (Naproxen*) 500 Mg Tablet, 500 MG PO BID, #20 TAB Prov:DERICK ANDRES DO 05/17/16 Givrwhoawar-P-Lmpatpukml Hb* (Guaifenesin* DM Syrup) 120 Ml Syrup, 10 ML PO Q4H Y for COUGH, #120 ML Prov:ROSANNE IYER PA-C 04/10/16 Lorazepam* (Lorazepam*) 1 Mg Tablet, 1 MG PO BID Y for ANXIETY, #14 TAB Prov:RAF NOGUEIRA 08/06/15 Erythromycin (Erythromycin Opth) 3.5 Gm Oint..gm., 1 APPLIC RIGHT EYE QID for 7 Days, EA Prov:RAF NOGUEIRA 08/06/15 Ibuprofen* (Motrin*) 600 Mg Tab, 600 MG PO Q6H Y for PAIN AND OR ELEVATED TEMP, #30 Prov:FREDA LEVINE MD 02/13/15 Reported Medications Simvastatin* (Zocor*) 40 Mg Tablet, 40 MG PO QHS, #30 TAB 05/17/16 Losartan Potassium* (Cozaar*) 50 Mg Tablet, 50 MG PO DAILY, #30 TAB 05/17/16 Aspirin (Low Dose Aspirin) 81 Mg Tablet.dr, 81 MG PO DAILY 11/24/14 Allergies Allergies: Coded Allergies: No Known Allergy (Unverified , 04/22/17) PMhx/Soc Medical and Surgical Hx: pt denies Surgical Hx History of Surgery: No Anesthesia Reaction: No Hx Neurological Disorder: No Hx Respiratory Disorders: No Hx Cardiac Disorders: Yes (HTN, ENLARGED HEART) Hx Psychiatric Problems: No Hx Miscellaneous Medical Probl: No Hx Alcohol Use: Yes Hx Substance Use: No Hx Tobacco Use: Yes (QUIT 2 YEARS AGO) Smoking Status: Current every day smoker Physical Exam Vitals Vital Signs Date Time Temp Pulse Resp B/P Pulse Ox O2 Delivery O2 Flow Rate FiO2 05/14/17 09:09 98.3 84 18 168/90 98 Physical Exam General: Well-developed, well-nourished, conscious and coherent, in no distress Skin: Warm and dry without rash, good texture and turgor Head: Normocephalic without evidence of trauma Eyes: Sclera and conjunctivae normal; pupils equal, round, and reactive to light; extraocular movements are intact Chest: Normal AP diameter. Good expansion without retractions. Nontender. Lungs are clear to auscultate bilaterally with good tidal volume Heart: Regular rate and rhythm. No murmur, rub, or gallops heard Extremities: Right foot normal to inspection, no erythema, swelling, or tenderness to palpation. Full range of motion. Good strength bilaterally. No clubbing, cyanosis, or edema. Peripheral pulses are intact. Sensation intact Neuro: Alert and oriented 4, GCS 15. Cranial nerves grossly intact. Motor and sensory exams nonfocal. Moves all extremities. Speech clear. Walking with antalgic gait due to pain. Results 24 hrs Current Medications Medications (Trade) Dose Ordered Sig/Sima Route PRN Reason Start Time Stop Time Status Last Admin Dose Admin Ibuprofen (Motrin) 800 mg ONCE ONCE PO 05/14/17 09:30 05/14/17 09:31 DC 05/14/17 09:35 Procedures/MDM Well-appearing 47-year-old male present ED with pain at the arch of his right foot. Patient's history exam findings are consistent with plantar fasciitis. Patient noted to wear soft flexible shoes without arch support. Patient educated on obtaining arch support and wear stiff soled shoes. I also educated patient on plantar fascia stretching techniques. I doubt fractures, dislocations, gout, or septic joint. Patient appears well, stable for discharge and outpatient management. Medical decision making shared with patient and family. Education provided to patient and family. Patient and family expressed understanding of the plan. Medications on discharge: Ibuprofen. Follow-up: Primary care provider in 2-3 days or return to ED if worse. Disclaimer: Inadvertent spelling and grammatical errors are likely due to EHR/ dictation software use and do not reflect on the overall quality of patient care. Also, please note that the electronic time recorded on this note does not necessarily reflect the actual time of the patient encounter. Departure Diagnosis: Primary Impression: Plantar fasciitis of right foot Condition: Stable Patient Instructions: Treating Plantar Fasciitis Additional Instructions: Call your primary care doctor TOMORROW for an appointment during the next 1 WEEK.Tell the loan secretary that you were referred from this facility.See the doctor sooner or return here if your condition worsens before your appointment time. Consider wear shoes with hard bottom and use arch support like SuperFeet. JESUS GOLDEN NP May 14, 2017 10:41
== END 2017-05-14 09:53 | disposition home or self-care (01) ==
LOC: FTE 09:06
DX: M72.2 Plantar fascial fibromatosis (principal); I10 Essential (primary) hypertension; F17.210 Nicotine dependence, cigarettes, uncomplicated; Z79.82 Long term (current) use of aspirin
CPT/HCPCS: Z7502; Z7610; 99283

== ENCOUNTER 2017-07-09 18:39 | Emergency (ER) | END 2017-07-09 23:39 | disposition home or self-care (01) ==

== ENCOUNTER 2017-08-10 07:28 | Emergency (ER) | END 2017-08-10 09:59 | disposition home or self-care (01) ==

== ENCOUNTER 2017-08-19 06:52 | Day surgery (SDC) | END 2017-08-19 17:55 | disposition home or self-care (01) ==

== ENCOUNTER 2017-10-18 10:40 | Emergency (ER) | END 2017-10-18 16:14 | disposition home or self-care (01) ==

== ENCOUNTER 2017-10-22 10:51 | Emergency (ER) | END 2017-10-22 14:57 | disposition home or self-care (01) ==

== ENCOUNTER 2018-05-26 12:54 | Emergency (ER) | END 2018-05-26 15:10 | disposition home or self-care (01) ==